=== PATIENT | female | born 1995 | race African-American/Black ===

== ENCOUNTER 2021-11-30 12:49 | Emergency (ER) | payer SELFPAY ==
--- OUTSIDE RECORDS SUMMARY | 2021-11-30 12:52 | XMS REPORT | Continuity of Care Document ---
:[address] [facility] t Address [address] [place] [address] Care Team Providers Name Role Phone Eric ORNELAS III Primary Care Physician Unavailable Christy Fuentes Attending Clinician CHRISTY NÚÑEZ Attending Clinician Unavailable Ewelina NEWSOME Attending Clinician Unavailable KNOW Admitting Clinician Unavailable CHRISTY NÚÑEZ Admitting Clinician Unavailable Payers Payer Name Policy Type Policy Number Effective Date Expiration Date Cecilia COBB O [id number] 2016 00:00:00 Problems Condition Condition Condition Status Onset Resolution Last Treating Co mments Source Name Details Category Date Date Treatment Clinician Date No known No known Disease Unive rs active active ity of problems problems [facility] Allergies, Adverse Reactions, Alerts Allergy Allergy Status Severity Reaction(s) Onset Inactive Treating Comm ents Source Name Type Date Date Clinician No Known DA Active U 2020-1 [facility]ie 0-15 [place] [facility] 00:00: d 00 [facility] No Known DA Active U 2020-1 [facility] Allergie 0-15 [place] [facility] 00:00: d 00 [facility] NO KNOWN Drug Active Univers ALLERGIE Class ity of S [facility] Social History Social Habit Start Date Stop Date Quantity Comments Source Exposure to Not sure [facility] SARS-CoV-2 (event) Medica l Branch Tobacco use and 2018-05-01 2018-05-01 Never used [facility] [place] exposure 00:00:00 00:00:00 Medical Branch Sex Ass[birth year] [facility] [place] 00:00:00 00:00:00 Medical Branch Smoking Status Start Date Stop Date Source Never smoker [facility] Medical Branch Medications Ordered Filled Start Stop Current Ordering Indication Dosage Frequency Signature Comments Components Source Medication Medication Date Date Medication? Clinician (SIG) Name Name ondansetron 2020-09- No 4mg 4 mg, Slow Univers (ZOFRAN 2-16 12-16 IV Push, ity of (PF)) 01:15: 00:11 ONCE, 1 [place] injection 4 00 :00 dose, On Medi nereida mg Wed Branch 09/05/21 at 1915, PETER ciprofloxac 2020-09- No 500mg 500 mg, U nivers in HCl -06 09-16 Oral, ity of (CIPRO) 01:00: 00:03 ONCE, 1 [place] tablet 500 00 :00 dose, On Medic al mg [facility] Branch 09/05/21 at 1900, PETER
Re ason for Anti-Infec tive: Documented Infection< br>Documen faheem Infection Site: Urine
D uration of Therapy: 10 days NaCl 0.9% 2020-09- No 1000mL at 999 Uni vers (NS) bolus 2-15 12-16 mL/hr, ity of infusion 22:30: 00:01 1,000 mL, Charan as 1,000 mL 00 :00 IV Medical Infusion, Branch ONCE, 1 dose, On Fri09/05/21 at 1630, STAT ondansetron 2020-09- No 4mg 4 mg, Slow Univers (ZOFRAN 2-15 12-15 IV Push, ity of (PF)) 22:30: 21:41 ONCE, 1 [place] injection 4 00 :00 dose, On Medi nereida mg Wed Branch 09/05/21 at 1630, PETER morpHINE 2020-09- No 4mg 4 mg, Slow Un lyndsey injection 4 2-15 12-15 IV Push, ity of mg 22:30: 21:41 ONCE, 1 [place] 00 :00 dose, On Medical Wed Branch 09/05/21 at 1630, STAT ondansetron 2020-09 Yes [id number] 4mg Take 1 Univers (ZOFRAN 2-15 tablet by ity of ODT) 4 mg 00:00: mouth [place] disintegrat 00 every 8 Medic al ing tablet (eight) Branch hours as needed for Nausea and Vomiting (N/V). cephALEXin 2020-09- Yes [id number] 500mg Take 1 Univers (KEFLEX) 2-15 12-26 capsule by ity of 500 mg 00:00: 05:59 mouth 3 [place] capsule 00 :00 (three) Medical times Branch daily for 10 days. atenolol 25 Yes 25mg Take 1 Univ ers mg tablet 8-10 tablet by ity o f 00:00: mouth [place] 00 daily. Medical Branch SUMAtriptan Yes 50mg Take 1 Univ ers (IMITREX) 8-10 tablet by ity o f 50 mg 00:00: mouth as [place] tablet 00 needed for Medical Migraine. Branch Immunizations Ordered Filled Immunization Date Status Comments [facility] Immunization Name Name SARS-COV-2 COVID-19 2020-12-09 Completed Unive rsity of PFIZER VACCINE 00:00:00 [facility] SARS-COV-2 COVID-19 2020-11-18 Completed Unive rsity of PFIZER VACCINE 00:00:00 [facility] Vital Signs Vital Name Observation Time Observation Value Comments Source Systolic blood 2021-09-06 00:18:00 124 mm[Hg] Univer sity of pressure [facility] Diastolic blood 2021-09-06 00:18:00 76 mm[Hg] [facility] Heart rate 2021-09-06 00:18:00 63 /min [facility] Respiratory rate 2021-09-06 00:18:00 16 /min [facility] Oxygen saturation in 2021-09-06 00:18:00 100 /min [facility] Arterial blood by [facility] Pulse oximetry [place] Body temperature 2021-09-05 19:59:00 36.89 [facility] Body height 2021-09-05 19:59:00 160 cm [facility] Body weight 2021-09-05 19:59:00 83.915 kg [facility] BMI 2021-09-05 19:59:00 32.77 kg/m2 [facility] Procedures Procedure Date / Time Performed Performing Clinician Birdie e US GALL BLADDER 2021-09-05 23:16:36 Karlene Núñez Christy [facility] POCT TEST 2021-09-05 20:41:00 Karlene Núñez [facility] LIPASE 2021-09-05 20:39:00 Karlene Núñez [facility] MAGNESIUM 2021-09-05 20:39:00 Karlene Núñez [facility] COMP. METABOLIC PANEL 2021-09-05 20:39:00 Karlene Núñez [facility] ([id number]) [facility] CBC WITH DIFF 2021-09-05 20:39:00 Karlene Núñez Christy [facility] URINALYSIS 2021-09-05 20:39:00 Karlene Núñez Christy [facility] CONSENT/REFUSAL FOR 2021-09-05 19:49:01 Doctor Unassigned, [facility] AND Name [facility] TREATMENT NOTICE OF PRIVACY 2021-09-05 19:47:43 Doctor Unassigned, No [facility] PRACTICES Name [facility] Encounters Start End Encounter Admission Attending Care Care Encounter Source Date/Time Date/Time Type Type Clinicians Facility Department ID 2020-07-06 Inpatient [facility]CAP[facility] FREDERIC [id number] [facility] 16:09:00 [id number] [facility] 2021-09-05 2021-09-05 Emergency Karlene Núñez [facility] [id number] Univers 14:01:00 18:29:00 Christy BAILEY [id number] i [facility] [id number] [facility] [id number] [facility] 084 Branch 2021-09-05 2021-09-05 Emergency X Karlene NÚÑEZ [facility] ERT [id number] Univers 14:01:00 [facility]29[facility] [place] 2020-12-09 2020-12-09 Outpatient [facility] [id number] Univers 17:35:00 17:35:00 [facility] 2020-11-18 2020-11-18 Outpatient R MERCEDEZ, [facility] [id number] Univers 16:05:00 16:05:00 RICHARD [facility] Results Test Description Test Time Test Comments Results Result Comments Source MAGNESIUM 2021-09-05 21:10:00 Test Item Value Reference Range Interpretation Comme nts MAGNESIUM (test code = 7669201869) 1.8 mg/dL 1.7-2.4 Lab Interpretation (test code = 30319-2) Normal [facility] ([id number])2021-09-05 21:09:40 Test Item Value Reference Range Interpretation Comments NA (test code = 139 mmol/L 135-145 9759211476) K (test code = 4.9 mmol/L 3.5-5.0 3617911793) CL (test code = 109 mmol/L 98-108 H 1331527148) CO2 TOTAL (test code = 22 mmol/L 23-31 L 6520120406) AGAP (test code = 2-16 8477347385) BUN (test code = 9 mg/dL 7-23 4043378183) GLUCOSE (test code = 106 mg/dL 70-110 7575749379) CREATININE (test code = 0.80 mg/dL 0.50-1.04 1772972174) TOTAL BILI (test code = 1.5 mg/dL 0.1-1.1 H 8275569992) CALCIUM (test code = 10.1 mg/dL 8.6-10.6 3766810393) T PROTEIN (test code = 8.3 g/dL 6.3-8.2 H 4752311736) ALBUMIN (test code = 4.8 g/dL 3.5-5.0 4030877074) ALK PHOS (test code = 76 U/L 34-122 7729007061) ALTv (test code = 17 U/L 5-35 1742-6) AST(SGOT) (test code = 27 U/L 13-40 7335733064) eGFR (test code = mL/min/1.73m2 1485205892) CACHORRO (test code = CACHORRO) Association of Glomerular Filtration Rate (GFR) and Staging of Kidney Disease* + --+ --+ ------+| GFR (mL/min/1.73 m2) ?| With Kidney Damage ?| ?Without Kidney Damage+ --------+ --------+ +| ?>90 ?| ?Stage one ?| ? Normal ?+ ---+ ---+ -------+| ?60-89 ?| ?Stage two ?| ? Decreased GFR ? + --+ --+ ------+| ?30-59 ?| ?Stage three ?| ? Stage three ? + --+ --+ ------+| ?15-29 ?| ?Stage four ? | ? Stage four ?+ ---+ ---+ -------+| ?<15 (or dialysis) ? ?| ?Stage five ? | ? Stage five ?+ ---+ ---+ -------+ *Each stage assumes the associated GFR level has been in effect for at least three months. ?Stages 1 to 5, with or without kidney disease, indicate chronic kidney disease. Notes: Determination of stages one and two (with eGFR >59mL/min/1.73 m2) requires estimation of kidney damage for at least three months as defined by structural or functional abnormalities of the kidney, manifested by either:Pathological abnormalities or Markers of kidney damage (including abnormalities in the composition of the blood or urine or abnormalities in imaging tests). Lab Interpretation Abnormal (test code = 46849-2) [facility]2021-[facility] 21:09:20 Test Item Value Reference Range Interpretation Comments LIPASE (test code = 1424024058) 135 U/L 0-220 Lab Interpretation (test code = Normal 91833-0) [facility] WITH [id number] 20:54:13 Test Item Value Reference Range Interpretation Comments WBC (test code = See_Comment [Automated 2929-2) message] The sy stem which generated this result transmitted reference range : 4.30 - 11.10 10*3/?L. The reference range was not used to interpret this result as normal/abnormal . RBC (test code = See_Comment [Automated 235-5) message] The sy stem which generated this result transmitted reference range : 3.93 - 5.25 10*6/?L. The reference range was not used to interpret this result as normal/abnormal . HGB (test code = 13.5 g/dL 11.6-15.0 718-7) HCT (test code = 42.3 % 35.7-45.2 4544-3) MCV (test code = 83.8 fL 80.6-95.5 787-2) MCH (test code = 26.7 pg 25.9-32.8 785-6) MCHC (test code = 31.9 g/dL 31.6-35.1 786-4) RDW-SD (test code = 42.2 fL 39.0-49.9 72950-3) RDW-CV (test code = 13.8 % 12.0-15.5 788-0) PLT (test code = See_Comment H [Automated 777-3) message] The sy stem which generated this result transmitted reference range : 166 - 358 10*3/ ?L. The reference r shelly was not used to interpret this result as normal/abnormal . MPV (test code = 10.2 fL 9.5-12.9 46837-7) NRBC/100 WBC (test See_Comment [Automat ed code = 7006853900) message] The system which generated this result transmitted reference range : 0.0 - 10.0 /100 WBCs. The refer ence range was not u sed to interpret th is result as normal/abnormal . NRBC x10^3 (test code <0.01 See_Comment [Auto mated = 7627297857) message] The s ystem which generated this result transmitted reference range : 10*3/?L. The reference range was not used to interpret this result as normal/abnormal . GRAN MAT (NEUT) % 83.8 % (test code = 770-8) IMM GRAN % (test code 0.30 % = 1114071716) LYMPH % (test code = 10.3 % 736-9) MONO % (test code = 3.8 % 5905-5) EOS % (test code = 1.6 % 713-8) BASO % (test code = 0.2 % 706-2) GRAN MAT x10^3(ANC) 7.22 10*3/uL 1.88-7.09 H (test code = 9310334400) IMM GRAN x10^3 (test 0.03 10*3/uL 0.00-0.06 code = 8371487119) LYMPH x10^3 (test code 0.89 10*3/uL 1.32-3.29 L = 731-0) MONO x10^3 (test code 0.33 10*3/uL 0.33-0.92 = 742-7) EOS x10^3 (test code = 0.14 10*3/uL 0.03-0.39 711-2) BASO x10^3 (test code <0.03 0.01-0.07 = 704-7) Lab Interpretation Abnormal (test code = 14520-7) [facility] [id number] 20:41:00 Test Item Value Reference Range Interpretation Comments POCT PREG (test code = 1605) negative On board controls acceptable with present C Line (test code = 3574) POCT PREG LOT # (test code = 3575) [id number] POCT PREG TEST DATE (test code = 3576) Lab Interpretation (test code = Normal 04607-5) [facility] RFLX MICR CULT IF [id number] 18:43:00 Test Item Value Reference Range Interpretation Comments UA COLOR (test code = YELLOW discript YEL/STRAW COLU) UA APPEARANCE (test code CLEAR discript CLEAR = APPU) UA GLUCOSE DIPSTICK (test NEGATIVE mg/dL NEG code = DGLUU) UA BILIRUBIN DIPSTICK NEGATIVE mg/dL NEG (test code = BILU) UA KETONE DIPSTICK (test TRACE mg/dL NEG code = KETU) UA SPECIFIC GRAVITY (test 1.020 SG 1.005-1.030 code = SGU) UA BLOOD DIPSTICK (test 3+ mg/DL NEG A code = MARISELA) UA PH DIPSTICK (test code 6.0 pH UNITS 5.0-7.0 = LIVIA) UA PROTEIN DIPSTICK (test TRACE mg/dL NEG A code = PROU) UA UROBILINIOGEN DIPSTICK 0.2 mg/dL <2.0 (test code = URO) UA NITRITE DIPSTICK (test NEGATIVE SCREEN NEG code = SHIRA) UA LEUKOCYTE ESTERASE TRACE Leuk/mcL NEGATIVE A DIPSTICK (test code = LEUU) UA WBC (test code = WBCU) 1-3 #WBC/HPF 0-3 UA RBC (test code = RBCU) 5-10 #RBC/HPF 0-3 A UA BACTERIA (test code = TRACE /HPF NONE-TRACE BACU) UA SQUAMOUS CELLS (test TRACE /HPF NONE code = SQU) UA CULTURE NEEDED? (test NO, WBC<10 Criteria Culture CHK code = UACULT) Indication for culture: Flank PainUA RFLX MICR CULT IF [id number] 18:42:00 Test Item Value Reference Range Interpretation Comments UA COLOR (test code = COLU) YELLOW discript YEL/STRAW UA APPEARANCE (test code = CLEAR discript CLEAR APPU) UA GLUCOSE DIPSTICK (test NEGATIVE mg/dL NEG code = DGLUU) UA BILIRUBIN DIPSTICK (test NEGATIVE mg/dL NEG code = BILU) UA KETONE DIPSTICK (test code TRACE mg/dL NEG = KETU) UA SPECIFIC GRAVITY (test 1.020 SG 1.005-1.030 code = SGU) UA BLOOD DIPSTICK (test code 3+ mg/DL NEG A = MARISELA) UA PH DIPSTICK (test code = 6.0 pH UNITS 5.0-7.0 LIVIA) UA PROTEIN DIPSTICK (test TRACE mg/dL NEG A code = PROU) UA UROBILINIOGEN DIPSTICK 0.2 mg/dL <2.0 (test code = URO) UA NITRITE DIPSTICK (test NEGATIVE SCREEN NEG code = SHIRA) UA LEUKOCYTE ESTERASE TRACE Leuk/mcL NEGATIVE A DIPSTICK (test code = LEUU) UA CULTURE NEEDED? (test code Criteria Culture CHK = UACULT) Indication for culture: Flank PainBASIC METABOLIC [id number] 18:10:00 Test Item Value Reference Range Interpretation Comments SODIUM (test code = NA) 142 mmol/L 134-147 N POTASSIUM (test code = 3.6 mmol/L 3.4-5.0 N K) CHLORIDE (test code = 113 mmol/L 100-108 H CL) CARBON DIOXIDE (test 25 mmol/L 21-32 N code = CO2) ANION GAP (test code = 4.0 GAP calc 4.0-15.0 N GAP) GLUCOSE (test code = 93 MG/DL 70-110 N GLU) BLOOD UREA NITROGEN 7 MG/DL 7-18 N (test code = BUN) GLOMERULAR FILTRATION >=60 max estimate >60 RATE (test code = GFR) estGFR CREATININE (test code = 1.0 MG/DL 0.6-1.0 N CREAT) CALCIUM (test code = CA) 9.1 MG/DL 8.5-10.1 N HEPATIC FUNCTION [id number] 18:10:00 Test Item Value Reference Range Interpretation Comments TOTAL PROTEIN (test code = PROT) 7.6 G/DL 6.4-8.2 N ALBUMIN (test code = ALB) 3.7 G/DL 3.4-5.0 N BILIRUBIN TOTAL (test code = BILT) 0.80 MG/DL 0.2-1.2 N BILIRUBIN DIRECT (test code = 0.20 MG/DL 0.00-0.30 N BILD) BILIRUBIN INDIRECT (test code = 0.60 MG/DL 0.2-1.2 N BILIND) SGOT/AST (test code = AST) 12 Unit/L 15-37 L SGPT/ALT (test code = ALT) 14 Unit/L 12-78 N ALKALINE PHOSPHATASE TOTAL (test 84 Unit/L 45-117 N code = ALKP) [id number] 18:10:00 Test Item Value Reference Range Interpretation Comments LIPASE (test code = LIP) 76 Unit/L 114-286 L CBC W/AUTO [id number] 17:50:00 Test Item Value Reference Range Interpretation Comments WHITE BLOOD CELL (test code = 7.2 K/mm3 3.5-11.0 N WBC) RED BLOOD CELL (test code = 4.85 M/mm3 4.70-6.10 N RBC) HEMOGLOBIN (test code = HGB) 12.7 G/DL 10.4-14.9 N HEMATOCRIT (test code = HCT) 38.2 % 31.5-44.1 N MEAN CELL VOLUME (test code = 78.8 Fl 84.5-98.6 L MCV) MEAN CELL HGB (test code = MCH) 26.2 pg 27.0-34.2 L MEAN CELL HGB CONCETRATION 33.2 G/DL 31.5-34.0 N (test code = MCHC) RED CELL DISTRIBUTION WIDTH 14.6 SD 11.5-14.5 H (test code = RDW) PLATELET COUNT (test code = 342 K/mm3 150-450 N PLT) MEAN PLATELET VOLUME (test code 10.20 fL 7.0-10.5 N = MPV) NEUTROPHIL % (test code = NT%) 73.1 % 40-76 N IMMATURE GRANULOCYTE % (test 0.3 % 0.0-5.0 N code = IG%) LYMPHOCYTE % (test code = LY%) 21.0 % 20.5-51.1 N MONOCYTE % (test code = MO%) 4.9 % 1.7-9.3 N EOSINOPHIL % (test code = EO%) 0.4 % 0.0-6.0 N BASOPHIL % (test code = BA%) 0.3 % 0.0-2.0 N NUCLEATED RBC % (test code = 0.0 /100WBC% 0.0-1.0 N NRBC%) NEUTROPHIL # (test code = NT#) 5.3 K/mm3 1.8-7.6 N IMMATURE GRANULOCYTE # (test 0.02 x10 3/uL 0.00-0.03 N code = IG#) LYMPHOCYTE # (test code = LY#) 1.5 K/mm3 0.6-3.2 N MONOCYTE # (test code = MO#) 0.4 K/mm3 0.3-1.1 N EOSINOPHIL # (test code = EO#) 0.0 K/mm3 0.0-0.4 N BASOPHIL # (test code = BA#) 0.0 K/mm3 0.0-0.1 N NUCLEATED RBC # (test code = 0.0 K/mm3 0.0-0.1 N NRBC#) MANUAL DIFF REQUIRED (test code NO DIFF/SCN CRITERIA = MDIFF) - US TRANSVAGINAL NON [id number] 17:40:00 [facility] : 1995 Sex: F Name: VENITA VALLEJO [facility] : 1995 Age/S: 25 / F [address] Unit #: [id number] Loc: [place] [address] Phys: [facility]aniya [facility] [id number] Dis Date: Status: REG ER PHONE #:[phone] Exam Date: 07/06/2020 1706 FAX #: Reason: pelvic pain EXAMS: CPT: [id number] [place] [address] Location: EXAM: - US PELVIC COMPLETE, - US TRANSVAGINAL NON OB INDICATION: Pelvic pain COMPARISON: None. TECHNIQUE: Multiplanar grayscale and color Doppler ultrasound of the pelvis were obtained: Transabdominally through a distended urinary bladder. Transvaginally postvoid. FINDINGS: Uterus/Myometrium:Size: 6.7 x 3.1 x 3.6 cm Orientation: Anteverted. Echogenicity: Normal. Masses: None. Cervix: Normal. Endometrium: Thickness: 0.6 cm Cysts/Masses: None. Right ovary: Size: 2.1 x 1.7 x 1.5 cm Cysts/Masses: There are normal-appearing follicles. Doppler: Normal. Left ovary: Size: 2.9 x 2.2 x 1.5 cm Cysts/Masses: There are normal-appearing follicles. Doppler: Normal. Adnexa: There is an anechoic, avascular structure within the right adnexa, measuring up to 4.4 cm in size. Free fluid: There is a small amount of free fluid within the cul-de-sac. IMPRESSION: There is an anechoic, avascular structure within the right adnexa, measuring up to 4.4 cm in size, likely representing a paraovarian cyst. Given size and p atient's age, no follow-up is required (see PAGE 1 Signed Report (CONTINUED) Name: VENITA VALLEJO [place] : 1995 Age/S: 25 / F [address] Unit #: [id number] Loc: [place] [address] Phys: Taniya Colin MD Acct: [id number] Dis Date: Status: REG ER PHONE #: [phone] Exam Date: 07/06/2020 1705 FAX #: Reason: pelvic pain EXAMS: CPT: [id number] [place] [address] <Continued> below). Small amount of free fluid within the cul-de- sac, which may be physiologic. No other abnormalities are identified on this pelvic ultrasound. ----- SIMPLE CYSTS: Women of reproductive age: < 5cm: No follow up needed >5cm and < 7cm: Yearly followup ultrasound >7cm: Recommend further imaging (MRI) or surgical consultation.REFERENCE: Felicitas Alcala et al. Management of Asymptomatic Ovarian and Other Adnexal Cysts Imaged at US: Society of Radiologists in Ultrasound Consensus Conference Statement. Radiology 2010; 256: 943-954 at 1740 Reported and signed by: Cl Koch M.D. CC: Taniya Colin MD; Bruna HAUSER Technologist: Ciera Loyola Trnnjb Date/Time: 07/06/2020 (174) [id number] PAGE 2 Signed Report Name: VENITA VLALEJO [facility] : 1995 Age/S: 25 / F [address] Unit #: [id number] Loc: [place] [address] Phys: Taniya Colin MD Acct: [id number] Dis Date: Status: NICOLA ALYSONKATHLEEN #: [phone] Exam Date: 07/06/2020 1708 FAX #: Reason: pelvic pain EXAMS: CPT: [id number] [place] [address] <Continued> Orig Print D/T: S: 07/06/2020 (174) Probe: [id number] PAGE 3 Signed Report- US PELVIC [id number] 17:40:00 [facility] : 1995 Sex: F Name: VENITA VALLEJO : 1995 Age/S: 25 / F [address] Unit #: [id number] Loc: [place] [address] Phys: [id number] Dis Date: Status: REG ER PHONE #:[phone] Exam Date: 07/06/2020 1704 FAX #: Reason: pelvic pain EXAMS: CPT: [id number] US PELVIC COMPLETE [address] Location: EXAM: - US PELVIC COMPLETE, - US TRANSVAGINAL NON OB INDICATION: Pelvic pain COMPARISON: None. TECHNIQUE: Multiplanar grayscale and color Doppler ultrasound of the pelvis were obtained: Transabdominally through a distended urinary bladder. Transvaginally postvoid. FINDINGS: Uterus/Myometrium:Size: 6.7 x 3.1 x 3.6 cm Orientation: Anteverted. Echogenicity: Normal. Masses: None. Cervix: Normal. Endometrium: Thickness: 0.6 cm Cysts/Masses: None. Right ovary: Size: 2.1 x 1.7 x 1.5 cm Cysts/Masses: There are normal-appearing follicles. Doppler: Normal. Left ovary: Size: 2.9 x 2.2 x 1.5 cm Cysts/Masses: There are normal-appearing follicles. Doppler: Normal. Adnexa: There is an anechoic, avascular structure within the right adnexa, measuring up to 4.4 cm in size. Free fluid: There is a small amount of free fluid within the cul-de-sac. IMPRESSION: There is an anechoic, avascular structure within the right adnexa, measuring up to 4.4 cm in size, likely representing a paraovarian cyst. Given size and p atient's age, no follow-up is required (see PAGE 1 Signed Report (CONTINUED) Name: VEINTA VALLEJOland : 1995 Age/S: 25 / F [address] Unit #: [id number] Loc: [place] [address] Phys: Taniya Colin MD Acct: [id number] Dis Date: Status: REG ER PHONE #: [phone] Exam Date: 07/06/2020 170 FAX #: Reason: pelvic pain EXAMS: CPT: [id number] US PELVIC COMPLETE [address]53 <Continued> below). Small amount of free fluid within the cul-de- sac, which may be physiologic. No other abnormalities are identified on this pelvic ultrasound. ----- SIMPLE CYSTS: Women of reproductive age: < 5cm: No follow up needed >5cm and < 7cm: Yearly followup ultrasound >7cm: Recommend further imaging (MRI) or surgical consultation.REFERENCE: Felicitas Alcala et al. Management of Asymptomatic Ovarian and Other Adnexal Cysts Imaged at US: Society of Radiologists in Ultrasound Consensus Conference Statement. Radiology 2010; 256: [phone] at 1740 Reported and signed by: Cl Koch M.D. CC: Taniya Colin MD; Bruna HAUSER Technologist: Ciera Loyola Trnscb Date/Time: 07/06/2020 (1740) [email or web address] PAGE 2 Signed Report Name: VENITA VALLEJO [place] : 1995 Age/S: 25 / F [address] Unit #: [id number] Loc: [place] [address] Phys: Taniya Colin MD Acct: [id number] Dis Date: Status: REG ERPHONE #: [phone] Exam Date: 07/06/2020 170 FAX #: Reason: pelvic pain EXAMS: CPT: [id number] US PELVIC COMPLETE [address] <Continued> Orig Print D/T: S: 07/06/2020 (5064) Probe: PAGE 3 Signed Report"
--- NOTE | 2021-11-30 13:47 | ER ---
Nurse's Notes [facility] Name: Deysi Mallory Age: 26 yrs Sex: Female : 1995 Arrival Date: 11/30/2021 Time: 12:52 Bed 11 Private MD: Diagnosis: Dental abscess Presentation: 11/30 13:02 Chief complaint: Patient states: she started having pain in her bottom right teeth ap3 which radiated to her right lower jaw yesterday. Patient states she woke up this morning to the swelling and an increase in the amount of pain. Patient reports she is unable to fully open her mouth, and over the counter medications have not helped her alleviate the pain. Coronavirus screen: At this time, the client does not indicate any symptoms associated with coronavirus-19. Ebola Screen: No symptoms or risks identified at this time. Initial Sepsis Screen: Does the patient meet any 2 criteria? No. Patient's initial sepsis screen is negative. Does the patient have a suspected source of infection? No. Patient's initial sepsis screen is negative. Risk Assessment: Do you want to hurt yourself or someone else? Patient reports no desire to harm self or others. Onset of symptoms was November 29, 2021. 13:02 Method Of Arrival: Ambulatory ap3 13:02 Acuity: JIMMIE 4 ap3 Triage Assessment: 13:05 General: Appears in no apparent distress. Behavior is calm, cooperative. Pain: ap3 Complains of pain in lower right lateral incisor, lower right cuspid, lower right first bicuspid and lower right second bicuspid Pain radiates to right jaw Pain currently is 10 out of 10 on a pain scale. Quality of pain is described as throbbing, Pain began gradually, 1 day ago. Neuro: Level of Consciousness is awake, alert, obeys commands, Oriented to person, place, time, situation. Respiratory: Airway is patent. Musculoskeletal: Swelling present in right jaw. 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 - Social history:: Smoking status: Reported history of juuling and/or vaping. Screenin:07 Abuse screen: Denies threats or abuse. Nutritional screening: No deficits noted. ap3 Tuberculosis screening: No symptoms or risk factors identified. Fall Risk None identified. No fall in past 12 months (0 pts). Assessment: 13:15 General: Appears in no apparent distress. uncomfortable, Behavior is calm, cooperative, lr4 Reports. Pain: Complains of pain in right jaw and mouth Pain currently is 10 out of 10 on a pain scale. Neuro: No deficits noted. Neuro: Reports headache in right since yesterday. Cardiovascular: No deficits noted. Respiratory: No deficits noted. EENT: Reports pain in right cheek, mouth and right jaw Pain is 10 out of 10 on a pain scale. since yesterday. Musculoskeletal: No deficits noted. 13:55 Reassessment: Pt departed ed ambulatory with all personal effects, pt in nad. lr4 14:04 Reassessment: Patient states feeling better. lr4 Vital Signs: 13:02 BP 124 / 87; Pulse 87; Resp 17; Temp 98.2; Pulse Ox 99% ; Weight 74.84 kg; Height 5 ft. ap3 2 in. (157.48 cm); Pain 10/10; 13:02 Body Mass Index 30.18 (74.84 kg, 157.48 cm) ap3 ED Course: 12:52 Patient arrived in ED. kz 12:58 Faisal Albert MD is Attending Physician. kdr 13:04 Triage completed. ap3 13:07 Arm band placed on left wrist. ap3 13:09 Jasmyn Song, RN is Primary Nurse. lr4 Administered Medications: 13:55 Drug: Amoxicillin 500 mg Route: PO; lr4 13:55 Drug: Flagyl (metroNIDAZOLE) 500 mg Route: PO; lr4 13:55 Drug: traMADol 50 mg Route: PO; lr4 Outcome: 13:47 Discharge ordered by . kdr 14:02 Patient left the ED. em1 Signatures: Faisal Albert MD MD kdr Martinez, Eric em1 Judith Zimmer RN RN ap3 Jasmyn Song RN RN lr4 Deborah Bentley k
--- NOTE | 2021-11-30 13:47 | EDPHYS ---
Physician Documentation [facility] Name: Deysi Mallory Age: 26 yrs Sex: Female : 1995 Arrival Date: 11/30/2021 Time: 12:52 Bed 11 Private MD: ED Physician Faisal Albert HPI: 11/30 15:30 This 26 yrs old Black Female presents to ER via Ambulatory with complaints of Face kdr swelling. 15:30 The patient presents with pain, swelling. The problem is located in the right corner of kdr mouth, lower right first bicuspid, lower right second bicuspid and lower right first molar. Onset: The symptoms/episode began/occurred gradually, yesterday. Duration: The symptoms are continuous, and are steadily getting worse. Modifying factors: The symptoms are alleviated by nothing, the symptoms are aggravated by chewing, food. Associated signs and symptoms: The patient has no apparent associated signs or symptoms. Severity of symptoms: At their worst the symptoms were mild, in the emergency department the symptoms are unchanged. The patient has not experienced similar symptoms in the past. The patient has not recently seen a physician. 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 - Social history:: Smoking status: Reported history of juuling and/or vaping. ROS: 15:59 Constitutional: Negative for fever, chills, and weight loss, Eyes: Negative for injury, kdr pain, redness, and discharge, Neck: Negative for injury, pain, and swelling. 15:59 ENT: Positive for dental pain, of the right jaw, right cheek and right mandible. Exam: 15:59 Constitutional: This is a well developed, well nourished patient who is awake, alert, kdr and in no acute distress. Head/Face: Normocephalic, atraumatic. 15:59 ENT: Mouth: Oral mucosa: Gums: pink, reddened, swollen, on the lower right first bicuspid, lower right second bicuspid and lower right first molar. Vital Signs: 13:02 BP 124 / 87; Pulse 87; Resp 17; Temp 98.2; Pulse Ox 99% ; Weight 74.84 kg; Height 5 ft. ap3 2 in. (157.48 cm); Pain 10/10; 13:02 Body Mass Index 30.18 (74.84 kg, 157.48 cm) ap3 MDM: 13:47 Patient medically screened. kdr 15:59 Data reviewed: vital signs, nurses notes. Counseling: I had a detailed discussion with kdr the patient and/or guardian regarding: the historical points, exam findings, and any diagnostic results supporting the discharge/admit diagnosis, the need for outpatient follow up. Administered Medications: 13:55 Drug: Amoxicillin 500 mg Route: PO; lr4 13:55 Drug: Flagyl (metroNIDAZOLE) 500 mg Route: PO; lr4 13:55 Drug: traMADol 50 mg Route: PO; lr4 Disposition Summary: 11/30/21 13:47 Discharge Ordered Location: Home kdr Problem: new kdr Symptoms: are unchanged kdr Condition: Stable kdr Diagnosis - Dental abscess kdr Followup: kdr - With: Private Physician - When: 2 - 3 days - Reason: If symptoms return, Further diagnostic work-up, Recheck today's complaints, Continuance of care, Re-evaluation by your physician Discharge Instructions: - Discharge Summary Sheet kdr - Dental Abscess, Iqoi-by-Dhil kdr Forms: - Medication Reconciliation Form kdr - Thank You Letter kdr - Antibiotic Education kdr - Prescription Opioid Use kdr - Work release form lr4 Prescriptions: - Amoxicillin 500 mg Oral Capsule - take 1 capsule by ORAL route every 8 hours for 10 days; 30 tablet; Refills: 0, kdr Product Selection Permitted - Flagyl 500 mg Oral Tablet - take 1 tablet by ORAL route every 8 hours for 10 days; 30 tablet; Refills: 0, kdr Product Selection Permitted - Tramadol 50 mg Oral Tablet - take 1 tablet by ORAL route every 8 hours as needed; 12 tablet; Refills: 0, kdr Product Selection Permitted Signatures: Faisal Albert MD MD kdr Judith Zimmer RN RN ap3 Jasmyn Song RN RN lr4
[2021-11-30] MEDS ORDERED: AMOXICILLIN TRIHYDR 250 MG CAP ONE (13:52)
[2021-11-30] MEDS ORDERED: metroNIDAZOLE 500 MG TABLET ONE (13:52)
[2021-11-30] MEDS ORDERED: TRAMADOL HCL 50 MG TAB ONE (13:52)
[2021-11-30 14:09] VITALS: BP 124/87; TEMP 98.2; O2SAT 99
== END 2021-11-30 14:02 | disposition home or self-care (01) ==
LOC: ER 12:49
DX: K04.7 Periapical abscess without sinus (principal)
CPT/HCPCS: 99282